=== PATIENT | female | born 1975 | race Caucasian/White ===

== ENCOUNTER 2017-05-03 13:04 | Outpatient (CLI) | payer MEDICAID, OTHER | END 2017-05-03 13:05 | disposition home or self-care (01) | LOC: ULT 13:04 | PROVIDERS: ATTEND Internal Medicine Hematology & Oncology | DX: Z51.11 Encounter for antineoplastic chemotherapy (principal); C50.111 Malignant neoplasm of central portion of right female breast; Z79.899 Other long term (current) drug therapy | CPT/HCPCS: 93306 ==

== ENCOUNTER 2017-05-12 09:53 | Day surgery (SDC) | payer OTHER ==
[2017-05-12] MEDS ORDERED: Sodium Chloride 0.9% 20 ML ONE (09:57)
[2017-05-12] MEDS ORDERED: SODIUM CHLORIDE IVPB SCH (10:15)
[2017-05-12] MEDS ORDERED: ADMIXTURE FEE IVPB SCH (10:15)
[2017-05-12] MEDS ORDERED: TRASTUZUMAB IVPB SCH (10:15)
[2017-05-12 10:55] VITALS: BP 144/90; TEMP 99
== END 2017-05-12 11:24 | disposition home or self-care (01) ==
LOC: ONC/OP 09:53
PROVIDERS: ATTEND Internal Medicine Hematology & Oncology
DX: Z51.11 Encounter for antineoplastic chemotherapy (principal); C50.111 Malignant neoplasm of central portion of right female breast
CPT/HCPCS: 96413; A4216; J1642; J7050; J9355

== ENCOUNTER 2017-06-02 13:32 | Day surgery (SDC) | payer OTHER ==
[2017-06-02] MEDS ORDERED: Sodium Chloride 0.9% 20 ML ONE (13:49)
[2017-06-02] MEDS ORDERED: SODIUM CHLORIDE IVPB SCH (14:00)
[2017-06-02] MEDS ORDERED: ADMIXTURE FEE IVPB SCH (14:00)
[2017-06-02] MEDS ORDERED: TRASTUZUMAB IVPB SCH (14:00)
[2017-06-02 14:04] VITALS: BP 116/70; TEMP 97.9
== END 2017-06-02 15:10 | disposition home or self-care (01) ==
LOC: ONC/OP 13:32
PROVIDERS: ATTEND Internal Medicine Hematology & Oncology
DX: Z51.11 Encounter for antineoplastic chemotherapy (principal); C50.111 Malignant neoplasm of central portion of right female breast; I10 Essential (primary) hypertension; R11.0 Nausea; Z17.0 Estrogen receptor positive status [ER+]; Z79.82 Long term (current) use of aspirin; Z79.899 Other long term (current) drug therapy; Z90.11 Acquired absence of right breast and nipple; Z90.722 Acquired absence of ovaries, bilateral; Z98.890 Other specified postprocedural states; Z87.891 Personal history of nicotine dependence
CPT/HCPCS: 96413; A4216; J1642; J7050; J9355

== ENCOUNTER 2017-06-25 11:39 | Day surgery (SDC) | payer OTHER ==
[2017-06-25] MEDS ORDERED: Sodium Chloride 0.9% 20 ML ONE (11:58)
[2017-06-25] MEDS ORDERED: SODIUM CHLORIDE 0.9% IVPB SCH ×4 (12:15)
[2017-06-25] MEDS ORDERED: TRASTUZUMAB IVPB SCH ×4 (12:15)
[2017-06-25 12:27] VITALS: BP 101/63; TEMP 98.3
== END 2017-06-25 14:45 | disposition home or self-care (01) ==
LOC: ONC/OP 11:39
PROVIDERS: ATTEND Internal Medicine Hematology & Oncology
DX: Z51.11 Encounter for antineoplastic chemotherapy (principal); C50.111 Malignant neoplasm of central portion of right female breast; Z17.0 Estrogen receptor positive status [ER+]; Z90.11 Acquired absence of right breast and nipple; Z90.722 Acquired absence of ovaries, bilateral; Z87.891 Personal history of nicotine dependence
CPT/HCPCS: 96413; A4216; J1642; J7050; J9355

== ENCOUNTER 2017-07-22 10:07 | Day surgery (SDC) | payer OTHER ==
[2017-07-22] MEDS ORDERED: Sodium Chloride 0.9% 20 ML ONE (10:29)
[2017-07-22] MEDS ORDERED: SODIUM CHLORIDE IVPB SCH ×2 (10:30)
[2017-07-22] MEDS ORDERED: TRASTUZUMAB IVPB SCH ×2 (10:30)
[2017-07-22] MEDS ORDERED: ADMIXTURE FEE IVPB SCH ×2 (10:30)
[2017-07-22 12:11] VITALS: BP 132/62; TEMP 97.9
== END 2017-07-22 12:36 | disposition home or self-care (01) ==
LOC: ONC/OP 10:07
PROVIDERS: ATTEND Internal Medicine Hematology & Oncology
DX: Z51.11 Encounter for antineoplastic chemotherapy (principal); C50.111 Malignant neoplasm of central portion of right female breast; I10 Essential (primary) hypertension; R11.0 Nausea; Z87.891 Personal history of nicotine dependence; Z17.0 Estrogen receptor positive status [ER+]; Z79.810 Long term (current) use of selective estrogen receptor modulators (SERMs); Z79.82 Long term (current) use of aspirin; Z79.891 Long term (current) use of opiate analgesic; Z79.899 Other long term (current) drug therapy; Z90.722 Acquired absence of ovaries, bilateral; Z90.11 Acquired absence of right breast and nipple
CPT/HCPCS: 96413; A4216; J1642; J5355; J7050; J9355

== ENCOUNTER 2017-08-26 09:11 | Day surgery (SDC) | payer OTHER ==
[2017-08-26] MEDS ORDERED: Sodium Chloride 0.9% 20 ML ONE (09:49)
[2017-08-26] MEDS ORDERED: ADMIXTURE FEE IVPB SCH (11:00)
[2017-08-26] MEDS ORDERED: TRASTUZUMAB IVPB SCH (11:00)
[2017-08-26] MEDS ORDERED: SODIUM CHLORIDE IVPB SCH (11:00)
== END 2017-08-26 14:52 | disposition home or self-care (01) ==
LOC: ONC/OP 09:11
PROVIDERS: ATTEND Internal Medicine Hematology & Oncology
DX: Z51.11 Encounter for antineoplastic chemotherapy (principal); C50.111 Malignant neoplasm of central portion of right female breast; R03.0 Elevated blood-pressure reading, without diagnosis of hypertension; Z17.0 Estrogen receptor positive status [ER+]; Z90.11 Acquired absence of right breast and nipple; Z90.722 Acquired absence of ovaries, bilateral; Z87.891 Personal history of nicotine dependence
CPT/HCPCS: 96413; A4216; J1642; J5355; J7050

== ENCOUNTER 2017-10-04 11:57 | Day surgery (SDC) | payer OTHER ==
[2017-10-04] MEDS ORDERED: TRASTUZUMAB IVPB SCH (12:15)
[2017-10-04] MEDS ORDERED: SODIUM CHLORIDE IVPB SCH (12:15)
[2017-10-04] MEDS ORDERED: ADMIXTURE FEE IVPB SCH (12:15)
[2017-10-04] MEDS ORDERED: Sodium Chloride 0.9% 20 ML ONE (12:23)
[2017-10-04 12:59] VITALS: BP 110/76; TEMP 97.8
== END 2017-10-04 16:24 | disposition home or self-care (01) ==
LOC: ONC/OP 11:57
PROVIDERS: ATTEND Internal Medicine Hematology & Oncology
DX: Z51.11 Encounter for antineoplastic chemotherapy (principal); C50.111 Malignant neoplasm of central portion of right female breast; R03.0 Elevated blood-pressure reading, without diagnosis of hypertension; Z17.0 Estrogen receptor positive status [ER+]; Z79.82 Long term (current) use of aspirin; Z79.810 Long term (current) use of selective estrogen receptor modulators (SERMs); Z79.899 Other long term (current) drug therapy; Z90.11 Acquired absence of right breast and nipple; Z90.722 Acquired absence of ovaries, bilateral; Z98.890 Other specified postprocedural states; Z87.891 Personal history of nicotine dependence
CPT/HCPCS: 96413; A4216; J7050; J9355

== ENCOUNTER 2017-10-15 12:08 | Outpatient (CLI) | payer OTHER | END 2017-10-15 12:09 | disposition home or self-care (01) | LOC: ULT 12:08 | PROVIDERS: ATTEND Internal Medicine Hematology & Oncology | DX: Z51.11 Encounter for antineoplastic chemotherapy (principal); C50.111 Malignant neoplasm of central portion of right female breast; Z79.899 Other long term (current) drug therapy | CPT/HCPCS: 93306 ==

== ENCOUNTER 2017-11-01 08:38 | Outpatient (CLI) | payer OTHER ==
[2017-11-01] MEDS ORDERED: ISOVUE-370 76%-LOCM 1 ML ONE (13:12)
== END 2017-11-01 08:39 | disposition home or self-care (01) ==
LOC: BICCT 08:38
PROVIDERS: ATTEND Internal Medicine Hematology & Oncology
DX: C50.111 Malignant neoplasm of central portion of right female breast (principal); K76.89 Other specified diseases of liver; Z98.890 Other specified postprocedural states
CPT/HCPCS: 71260; 74160

== ENCOUNTER 2017-11-08 10:11 | Day surgery (SDC) | payer OTHER ==
[2017-11-08] MEDS ORDERED: Sodium Chloride 0.9% 20 ML ONE (10:22)
[2017-11-08] MEDS ORDERED: SODIUM CHLORIDE IVPB SCH (10:30)
[2017-11-08] MEDS ORDERED: ADMIXTURE FEE IVPB SCH (10:30)
[2017-11-08] MEDS ORDERED: TRASTUZUMAB IVPB SCH (10:30)
== END 2017-11-08 12:19 | disposition home or self-care (01) ==
LOC: ONC/OP 10:11
PROVIDERS: ATTEND Internal Medicine Hematology & Oncology
DX: Z51.11 Encounter for antineoplastic chemotherapy (principal); C50.111 Malignant neoplasm of central portion of right female breast
CPT/HCPCS: 96413; A4216; J1642; J7050; J9355

== ENCOUNTER 2017-11-29 11:18 | Day surgery (SDC) | payer OTHER ==
[2017-11-29] MEDS ORDERED: Sodium Chloride 0.9% 20 ML ONE (11:47)
[2017-11-29] MEDS ORDERED: TRASTUZUMAB IVPB SCH (12:15)
[2017-11-29] MEDS ORDERED: SODIUM CHLORIDE 0.9% IVPB SCH (12:15)
[2017-11-29] MEDS ORDERED: Sodium Chloride 0.9% 500 ML IVPB SCH (12:45)
[2017-11-29 12:53] VITALS: BP 119/66; TEMP 98.3
== END 2017-11-29 16:48 | disposition home or self-care (01) ==
LOC: ONC/OP 11:18
PROVIDERS: ATTEND Internal Medicine Hematology & Oncology
DX: Z51.11 Encounter for antineoplastic chemotherapy (principal); C50.111 Malignant neoplasm of central portion of right female breast
CPT/HCPCS: 96361; 96413; A4216; J1642; J7050; J9355

== ENCOUNTER 2017-12-20 11:25 | Day surgery (SDC) | payer OTHER ==
[2017-12-20] MEDS ORDERED: TRASTUZUMAB IVPB SCH ×2 (11:30→11:45)
[2017-12-20] MEDS ORDERED: SODIUM CHLORIDE 0.9% IVPB SCH ×2 (11:30→11:45)
[2017-12-20] MEDS ORDERED: Sodium Chloride 0.9% 20 ML ONE (13:03)
== END 2017-12-20 15:38 | disposition home or self-care (01) ==
LOC: ONC/OP 11:25
PROVIDERS: ATTEND Internal Medicine Hematology & Oncology
DX: Z51.11 Encounter for antineoplastic chemotherapy (principal); C50.111 Malignant neoplasm of central portion of right female breast; I10 Essential (primary) hypertension; Z79.82 Long term (current) use of aspirin; Z79.899 Other long term (current) drug therapy; Z17.0 Estrogen receptor positive status [ER+]; Z90.11 Acquired absence of right breast and nipple; Z90.722 Acquired absence of ovaries, bilateral
CPT/HCPCS: 96413; A4216; J1642; J7050; J9355

== ENCOUNTER 2018-01-10 14:07 | Day surgery (SDC) | payer OTHER ==
[2018-01-10] MEDS ORDERED: SODIUM CHLORIDE 0.9% IVPB SCH (14:30)
[2018-01-10] MEDS ORDERED: TRASTUZUMAB IVPB SCH (14:30)
[2018-01-10 14:55] VITALS: BP 141/85; TEMP 98
[2018-01-10] MEDS ORDERED: Sodium Chloride 0.9% 20 ML ONE (16:50)
== END 2018-01-10 17:35 | disposition home or self-care (01) ==
LOC: ONC/OP 14:07
PROVIDERS: ATTEND Internal Medicine Hematology & Oncology
DX: Z51.11 Encounter for antineoplastic chemotherapy (principal); C50.111 Malignant neoplasm of central portion of right female breast; Z87.891 Personal history of nicotine dependence; Z79.82 Long term (current) use of aspirin; Z79.899 Other long term (current) drug therapy
CPT/HCPCS: 96413; A4216; J1642; J7050; J9355

== ENCOUNTER 2018-02-23 20:42 | Emergency (ER) | payer OTHER ==
[2018-02-23] MEDS ORDERED: Ibuprofen 200 MG TAB ONE (21:31)
--- NOTE | 2018-02-23 21:49 | RAD ---
THREE VIEWS OF THE RIGHT RING FINGER: 02/23/18 HISTORY: Caught fourth finger in hand rail. Patient felt like it bent backwards. Swelling to entire finger. FINDINGS: There is no evidence of a fracture, dislocation, or other osseous abnormality involving the right rin g finger. IMPRESSION: No acute osseous abnormality. POS: [facility]
== END 2018-02-23 22:09 | disposition home or self-care (01) ==
LOC: SCSER 20:42
DX: S63.614A Unspecified sprain of right ring finger, initial encounter (principal); W22.8XXA Striking against or struck by other objects, initial encounter

== ENCOUNTER 2018-04-19 12:30 | Outpatient (CLI) | payer OTHER ==
--- NOTE | 2018-04-19 15:46 | PET ---
RADIONUCLIDE PET SCAN WITH CT ATTENUATION CORRECTION: HISTORY: Right breast cancer. Restaging. COMPARISON: Images are available from prior outside PET exam from [facility] dated 02/19/16. Repo rt is not available. FINDINGS: Physiologic uptake of radiotracer is present throughout the enteric system and along each urinary tra ct. There are postoperative changes of the right breast without residual hypermetabolic activity. The hypermetabolic lymph nodes on the prior exam are no longer visible. No abnormal areas of hypermetabolic activity are apparent. The nondiagnostic CT attenuation correction images show postoperative changes of the anterior abdomin al wall and right breast. 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 Mini mal arterial calcification. Left subclavian MediPort. IMPRESSION: Postoperative changes. No scintigraphic evidence of metastatic disease. POS: [facility]
== END 2018-04-19 12:31 | disposition home or self-care (01) ==
LOC: PET 12:30
PROVIDERS: ATTEND Internal Medicine Hematology & Oncology
DX: C50.911 Malignant neoplasm of unspecified site of right female breast (principal); Z98.890 Other specified postprocedural states
CPT/HCPCS: 78815; A9552

== ENCOUNTER 2018-10-06 10:37 | Outpatient (CLI) | payer OTHER ==
[2018-10-06 11:38] LABS: ALT (SGPT) 27 U/L (8-55); AST (SGOT) 25 U/L (5-34); Albumin 4.5 g/dL (3.5-5.0); Alkaline Phosphatase 89 U/L (40-150); Anion Gap 14 mmol/L (10-20); BUN (Urea Nitrogen) 13 mg/dL (7.0-18.7); Bilirubin, Total 0.2 mg/dL (0.2-1.2); Calc. Creatinine Clearance 0 mL/min (70-130); Calcium 9.9 mg/dL (7.8-10.44); Carbon Dioxide 26 mmol/L (22-29); Chloride 101 mmol/L (98-107); Estimated GFR-MDRD 86; Glucose 92 mg/dL (70-105); Potassium 3.9 mmol/L (3.5-5.1); Protein, Total 7.5 g/dL (6.0-8.3); Sodium 137 mmol/L (136-145)
--- NOTE | 2018-10-06 12:00 | RAD ---
TWO VIEWS CHEST: Comparison: None. History: History of breast cancer along the mastectomy site in the right chest wall. FINDINGS: Two views of the chest shows a normal sized cardiomediastinal silhouette. A Mediport is seen with its tip in the superior vena cava. A marker is seen at the area of palpable abnormality along the right chest wall. Two adjacent landon are seen in the right chest wall. Additional surgical clips are seen along the right chest wall. No radiopaque mass is seen. IMPRESSION: No evidence of acute cardiopulmonary disease. POS: [facility]
[2018-10-06 12:20] LABS: #Basophils 0.1 thou/uL (0.0-0.2); #Eosinphils 0.1 thou/uL (0.0-0.7); #Lymphocytes 1.7 thou/uL (1.20-3.40); #Monocytes 0.4 thou/uL (0.11-0.59); #Neutrophils 3.4 thou/uL (1.40-6.50); %Basophils 1.5 % (0.0-1.0); %Eosinophils 0.9 % (0.0-10.0); %Monocytes 6.4 % (0.0-10.0); %Neutrophils 60.3 % (42.0-75.0); Anisocytosis SLIGHT = 6-15 cells (100X) (0-5/hpf); Elliptocytes SLIGHT = 2-5 cells (100X) (0-1/hpf); Hypochromia SLIGHT = 6-15 cells (100X) (0-5/hpf); MDiff Complete? YES; Mean Corpuscular Hemoglobin 22.8 pg (27.0-31.0); Mean Corpuscular Volume 73.4 fL (78.0-98.0); Mean Platelet Volume 11.6 fL (7.4-10.4); Microcytosis SLIGHT = 6-15 cells (100X) (0-5/hpf); Platelet Count 205 thou/uL (130-400); Platelet Morphology Comment Appears Adequate; Polychromasia SLIGHT = 2-3 cells (100X) (0-2/hpf); Red Blood Cell (RBC) Count 5.28 mill/uL (4.20-5.40); White Blood Cell (WBC) Count 5.6 thou/uL (4.8-10.8)
== END 2018-10-06 10:38 | disposition home or self-care (01) ==
LOC: SCSRAD 10:37
PROVIDERS: ATTEND Family Medicine
DX: Z85.3 Personal history of malignant neoplasm of breast (principal)
CPT/HCPCS: 36415; 71046; 80053; 85025

== ENCOUNTER 2018-10-10 09:13 | Outpatient (CLI) | payer OTHER ==
--- NOTE | 2018-10-10 11:38 | ULT ---
RIGHT BREAST ULTRASOUND: COMPARISON: Mammogram 10/10/2018. HISTORY: The patient has a history of right mastectomy status post mastectomy and soft tissue reconstruction. The patient has had multiple local recurrences in the right reconstructed breast. The patient feels a new lump in the lower aspect of the right breast. TECHNIQUE: Multiplanar, urrutia scale, and color Doppler images were obtained in a targeted ultrasound of the right breast. At the area of palpable abnormality, very superficial and at the skin surface, there is a t iny 1-2 mm hypoechoic region associated with the dermis. This does not demonstrate shadowing and is nonspecific. No mass is seen deeper in the reconstructed breast soft tissue. IMPRESSION: BIRADS category 2 - benign findings. The palpable abnormality is associated with the skin at the are a of the patient's autologous tissue insertion and along the incision line. This is nonspecific and could represent granulation tissue. No mass is seen which would warrant an ultrasound-guided biopsy. If clinically of concern, a biopsy of this superficial skin lesion could be performed to preclude l ocal occurrence. In addition, an MRI of the chest wall and breast could be performed to evaluate for recurrent disease. POS: [facility]
== END 2018-10-10 09:14 | disposition home or self-care (01) ==
LOC: BICMAMMO 09:13
PROVIDERS: ATTEND Family Medicine
DX: Z08 Encounter for follow-up examination after completed treatment for malignant neoplasm (principal); Z85.3 Personal history of malignant neoplasm of breast
CPT/HCPCS: 77066; G0279

== ENCOUNTER 2018-11-11 11:03 | Outpatient (CLI) | payer OTHER ==
--- NOTE | 2018-11-11 13:09 | CT ---
CT CHEST AND ABDOMEN AND PELVIS WITH IV CONTRAST: Date: 11/11/18 Multiple axial tomograms obtained through chest, abdomen, and pelvis with IV enhancement. Oral contra st was administered. Multiplanar reconstruction. INDICATION: Malignant neoplasm of breast. Post mastectomy chem and radiation. Comparison made to the previous CT abdomen and pelvis dated 11/01/[address] exam of 04/19/18. FINDINGS: CT CHEST: Lung nguyen are well aerated and clear. No infiltrate or effusion. No pulmonary mass or nodule. Media stinum unremarkable. Thyroid unremarkable. No evidence of axillary adenopathy. Postoperative changes at the right breast. Osseous structures of thorax appear unremarkable. IMPRESSION: Unremarkable CT chest. CT ABDOMEN AND PELVIS: Cystic lesion in the superior right lobe of the liver under the diaphragm is stable. Liver, spleen, a nd pancreas are otherwise unremarkable. Stomach and duodenum unremarkable. Adrenal glands normal. Kidneys unremarkable. There is a 1.0 cm low density lesion in the superior pole of the left kidney me asuring 1.0 cm. This is stable from prior exam and consistent with cyst. Urinary bladder mildly distended and unremarkable. Small bowel loops appear normal. There is prominent stool throughout the colon. Aorta shows atherosclerotic calcification. Aorta is normal caliber. No evidence of adenopathy. Images through the pelvis show an unremarkable uterus and adnexa. Osseous structures are unremarkable. IMPRESSION: Unremarkable CT abdomen and pelvis. POS: [facility]
[2018-11-11] MEDS ORDERED: ISOVUE-370 76%-LOCM 1 ML ONE (15:08)
== END 2018-11-11 11:04 | disposition home or self-care (01) ==
LOC: BICCT 11:03
PROVIDERS: ATTEND Internal Medicine Hematology & Oncology
DX: C50.111 Malignant neoplasm of central portion of right female breast (principal)
CPT/HCPCS: 71260; 74177; Q9966

== ENCOUNTER 2020-05-02 09:19 | Outpatient (CLI) | payer OTHER ==
[2020-05-02] MEDS ORDERED: Iopamidol 370 76% 100 ML VIAL ONE (09:31)
--- NOTE | 2020-05-02 12:31 | CT ---
CT OF THE CHEST AND ABDOMEN AND PELVIS WITH IV CONTRAST: Date: 05/02/2020 INDICATION: History of breast cancer and right mastectomy with revision, status post chemo and radiation therapy. COMPARISON: Prior CT of chest and abdomen dated 11/11/2018 and 04/21/2017, and a PET/CT dated 04/19/2018. Compari son also made with a CT of the abdomen and pelvis dated 07/03/2016. FINDINGS: No suspicious pulmonary nodule or pleural effusion is evident. There is postprocedural change involving the right chest wall consistent with a right-sided breast re construction. There are numerous surgical clips involving the right chest wall. There has been interv al enlargement of a soft tissue mass-like opacity seen involving the right anterolateral chest wall j ust along the right chest wall margin on image 42 of series 2, near the midline, which may reflect an area of more exuberant scar from the patient's reconstruction; however, recurrent malignancy is not entirely excluded. There are new enlarged lymph nodes within the prevascular region, with the largest measuring up to 1. 2 cm on image 18 of series 2. There are some mildly prominent AP window lymph nodes. No axillary lymphadenopathy is evident. There is an enlarging hypodense lesion with enhancing internal septation suspicious for an enlarging septated cyst measuring 1.4 cm within segment VII of the right hepatic dome. No additional focal hepa tic lesion is evident. Pancreas, adrenal glands, and spleen appear within normal limits. No focal renal lesion is evident. There are mild vascular calcifications involving the abdominopelvic vasculature. There is surgical change involving the lower anterior abdomen consistent with patient's history of re constructive surgery of the right breast, as well as a tummy-tuck of the lower abdomen. The bladder is partially decompressed. There is a mild amount of retained stool within the colon. No suspicious osteolytic or osteoblastic lesions are evident. IMPRESSION: 1. Findings suspicious for malignant lymphadenopathy of the anterior mediastinum. PET/CT is recommen ded for additional characterization. 2. Soft tissue mass involving the anterolateral aspect of the right chest wall, may be related to ex uberant scar from the patient's right breast reconstruction; however, recurrent mass in the right mas tectomy bed cannot be entirely excluded. 3. Enlarging septated cyst of the right hepatic lobe. No overt evidence to suggest metastatic diseas e in the abdomen or pelvis or bones. CODE T. POS: [facility]
--- NOTE | 2020-05-02 13:39 | NM ---
NUCLEAR MEDICINE BONE SCAN WHOLE BODY: (Skeletal scintigraphy) DATE: 05/02/2020 HISTORY: 44-year-old female with "malignant neoplasm of central portion of right female breast" TECHNIQUE: IV injection of technetium 99m-MDP: 32.7 mCi 3 hour delayed whole body skeletal scintigraphy in anterior and posterior views. FINDINGS: There are no foci of asymmetrically increased uptake that are particularly suspicious for bone metast ases. IMPRESSION: No compelling evidence of skeletal metastasis.
== END 2020-05-02 09:20 | disposition home or self-care (01) ==
LOC: CT 09:19
PROVIDERS: ATTEND Internal Medicine Hematology & Oncology
DX: Z51.11 Encounter for antineoplastic chemotherapy (principal); C50.111 Malignant neoplasm of central portion of right female breast; R22.2 Localized swelling, mass and lump, trunk; K76.89 Other specified diseases of liver; I08.2 Rheumatic disorders of both aortic and tricuspid valves
CPT/HCPCS: 71260; 74177; 78306; 93306; A9503; Q9967

== ENCOUNTER 2021-01-07 20:10 | Emergency (ER) | payer MEDICARE, OTHER, MEDICAID ==
[~2021-01-07 20:10] MED LIST: Iopamidol-370 76% 500 ML 1 ML ONE
[2021-01-07 21:17] LABS: #Eosinphils 0.2 thou/uL (0.0-0.7); #Lymphocytes 1.4 thou/uL (1.20-3.40); #Monocytes 0.5 thou/uL (0.11-0.59); #Neutrophils 3.4 thou/uL (1.40-6.50); %Basophils 0.3 % (0.0-1.0); %Eosinophils 3.4 % (0.0-10.0); %Lymphocytes 25.5 % (21.0-51.0); %Monocytes 9.7 % (0.0-10.0); %Neutrophils 61.1 % (42.0-75.0); Hemoglobin 12.7 g/dL (12.0-16.0); Mean Corpuscular HGB CONC 34.2 g/dL (32.0-36.0); Mean Corpuscular Hemoglobin 30.7 pg (27.0-31.0); Mean Corpuscular Volume 89.7 fL (78.0-98.0); Mean Platelet Volume 9.9 fL (7.4-10.4); Platelet Count 247 thou/uL (130-400); RBC Distribution Width 14.8 % (11.5-14.5); Red Blood Cell (RBC) Count 4.14 mill/uL (4.20-5.40); White Blood Cell (WBC) Count 5.6 thou/uL (4.8-10.8)
[2021-01-07 21:28] LABS: BHCG - Serum Negative (NEGATIVE); Pregs Control Background? CLEAR/WHITE (CLR/WHITE); Pregs Control Bar Appear? YES (CONTROL BAR)
[2021-01-07 21:40] LABS: ALT (SGPT) 29 U/L (8-55); AST (SGOT) 20 U/L (5-34); Albumin 4.3 g/dL (3.5-5.0); Alkaline Phosphatase 87 U/L (40-110); Anion Gap 15 mmol/L (10-20); BUN (Urea Nitrogen) 13 mg/dL (7.0-18.7); Bilirubin, Total 0.2 mg/dL (0.2-1.2); CK (CPK) 109 U/L (29-168); Calc. Creatinine Clearance 0 mL/min (70-130); Calcium 9.6 mg/dL (7.8-10.44); Carbon Dioxide 24 mmol/L (22-29); Chloride 104 mmol/L (98-107); Globulin 2.9 g/dL (2.4-3.5); Glucose 112 mg/dL (70-105); Lipase 66 U/L (8-78); Protein, Total 7.2 g/dL (6.0-8.3); Sodium 139 mmol/L (136-145)
== END 2021-01-07 22:20 | disposition home or self-care (01) ==
LOC: ERS 20:10
DX: R06.00 Dyspnea, unspecified (principal); C79.89 Secondary malignant neoplasm of other specified sites; Z85.3 Personal history of malignant neoplasm of breast
CPT/HCPCS: 36415; 71045; 71275; 80053; 82550; 83690; 84484; 84703; 85025; 85379; 93005; Q9967

== ENCOUNTER 2021-05-29 12:53 | Emergency (ER) | payer MEDICARE, OTHER, MEDICAID ==
[2021-05-29 14:05] LABS: #Lymphocytes 0.7 thou/uL (1.20-3.40); #Monocytes 0.4 thou/uL (0.11-0.59); #Neutrophils 2.9 thou/uL (1.40-6.50); %Eosinophils 0.7 % (0.0-10.0); %Lymphocytes 18.1 % (21.0-51.0); %Monocytes 9.5 % (0.0-10.0); %Neutrophils 71.6 % (42.0-75.0); Hemoglobin 12.7 g/dL (12.0-16.0); Mean Corpuscular Hemoglobin 26.6 pg (27.0-31.0); Mean Corpuscular Volume 80.6 fL (78.0-98.0); Mean Platelet Volume 9.4 fL (7.4-10.4); Platelet Count 221 thou/uL (130-400); RBC Distribution Width 15.8 % (11.5-14.5); Red Blood Cell (RBC) Count 4.78 mill/uL (4.20-5.40); White Blood Cell (WBC) Count 4.1 thou/uL (4.8-10.8)
[2021-05-29] MEDS ORDERED: Albuterol 200 PUFF (6.7GM INHALER) ONE (14:07)
[2021-05-29 14:25] LABS: ALT (SGPT) 54 U/L (8-55); AST (SGOT) 32 U/L (5-34); Albumin 4.3 g/dL (3.5-5.0); Alkaline Phosphatase 106 U/L (40-110); Anion Gap 13 mmol/L (10-20); BUN (Urea Nitrogen) 5 mg/dL (7.0-18.7); Bilirubin, Total 0.2 mg/dL (0.2-1.2); Calc. Creatinine Clearance 0 mL/min (70-130); Calcium 9.9 mg/dL (7.8-10.44); Carbon Dioxide 27 mmol/L (22-29); Chloride 99 mmol/L (98-107); Globulin 3.3 g/dL (2.4-3.5); Glucose 80 mg/dL (70-105); Potassium 3.8 mmol/L (3.5-5.1); Protein, Total 7.6 g/dL (6.0-8.3); Sodium 135 mmol/L (136-145)
[2021-05-29 15:11] LABS: SARS-CoV-2 NAA Rapid Test Not Detected (NotDetected)
== END 2021-05-29 15:30 | disposition home or self-care (01) ==
LOC: ERS 12:53
DX: J18.9 Pneumonia, unspecified organism (principal); D72.819 Decreased white blood cell count, unspecified; Z20.822 Contact with and (suspected) exposure to COVID-19
CPT/HCPCS: 0240U; 71045; 80053; 83605; 85025; 94760; 99284; 36415

== ENCOUNTER 2021-08-15 09:06 | Emergency (ER) | payer MEDICARE, MEDICAID, OTHER | END 2021-08-15 10:13 | disposition home or self-care (01) | LOC: ERS 09:06 | DX: R20.2 Paresthesia of skin (principal); I10 Essential (primary) hypertension | CPT/HCPCS: 99283 ==

== ENCOUNTER 2022-04-09 10:50 | Emergency (ER) | payer MEDICARE, OTHER ==
[2022-04-09 11:41] LABS: #Lymphocytes 0.7 thou/uL (1.20-3.40); #Monocytes 0.5 thou/uL (0.11-0.59); #Neutrophils 3.5 thou/uL (1.40-6.50); %Basophils 0.1 % (0.0-1.0); %Eosinophils 0.6 % (0.0-10.0); %Monocytes 9.6 % (0.0-10.0); %Neutrophils 74.7 % (42.0-75.0); Mean Corpuscular HGB CONC 31.5 g/dL (32.0-36.0); Mean Corpuscular Hemoglobin 26.3 pg (27.0-31.0); Mean Corpuscular Volume 83.7 fL (78.0-98.0); Mean Platelet Volume 9.7 fL (7.4-10.4); Platelet Count 232 thou/uL (130-400); RBC Distribution Width 18.3 % (11.5-14.5); Red Blood Cell (RBC) Count 4.18 mill/uL (4.20-5.40); White Blood Cell (WBC) Count 4.7 thou/uL (4.8-10.8)
[2022-04-09 11:58] LABS: ALT (SGPT) 70 U/L (8-55); AST (SGOT) 40 U/L (5-34); Alkaline Phosphatase 192 U/L (40-110); Anion Gap 16 mmol/L (10-20); BUN (Urea Nitrogen) 7 mg/dL (7.0-18.7); Bilirubin, Total 0.9 mg/dL (0.2-1.2); Calc. Creatinine Clearance 0 mL/min (70-130); Calcium 8.9 mg/dL (7.8-10.44); Carbon Dioxide 23 mmol/L (22-29); Chloride 103 mmol/L (98-107); Estimated GFR 99; Globulin 2.5 g/dL (2.4-3.5); Glucose 108 mg/dL (70-105); Potassium 3.6 mmol/L (3.5-5.1); Protein, Total 6.5 g/dL (6.0-8.3); Sodium 138 mmol/L (136-145)
[2022-04-09] MEDS ORDERED: Acetaminophen 500 MG TAB ONE (13:22)
[2022-04-09 13:30] LABS: BHCG - Serum Negative (NEGATIVE); Pregs Control Background? CLEAR/WHITE (CLR/WHITE); Pregs Control Bar Appear? YES (CONTROL BAR)
== END 2022-04-09 15:02 | disposition home or self-care (01) ==
LOC: ERS 10:50
DX: J90 Pleural effusion, not elsewhere classified (principal); I31.3 Pericardial effusion (noninflammatory); I10 Essential (primary) hypertension; Z85.3 Personal history of malignant neoplasm of breast
CPT/HCPCS: 36415; 71045; 71275; 74177; 80053; 84484; 84703; 85025; 93005